=== PATIENT | male | born 1980 | race African-American/Black ===

== ENCOUNTER 2023-08-01 14:54 | Observation (INO) | payer BC ==
[2023-08-01] MEDS ORDERED: Nitroglycerin 0.4 MG TAB (25 Tab Bottle) SL PRN (16:21)
[2023-08-01] MEDS ORDERED: Acetaminophen 325 MG TAB PO PRN (16:21)
[2023-08-01] MEDS ORDERED: Guaifenesin DM 100-10/5 ML UDCUP PO PRN (16:21)
[2023-08-01] MEDS ORDERED: Ondansetron PF 4 MG/2 ML Vial IVP PRN (16:21)
[2023-08-01] MEDS ORDERED: Senokot S 8.6-50 MG TAB PO PRN (16:21)
[2023-08-01 16:51] VITALS: BMI 30.6
[2023-08-01 18:06] LABS: Troponin I Less than 0.010 ng/mL (< 0.028)
[2023-08-01] MEDS: TICAGRELOR 90 MG TABLET PO SCH (20:32)
[2023-08-01] MEDS ORDERED: Atorvastatin Calcium 40 MG TAB PO SCH (21:00)
[2023-08-01 23:06] LABS: Troponin I Less than 0.010 ng/mL (< 0.028)
[2023-08-02 04:02] LABS: #Eosinphils 0.2 thou/uL (0.0-0.7); #Monocytes 0.5 thou/uL (0.11-0.59); #Neutrophils 2.9 thou/uL (1.40-6.50); %Basophils 0.6 % (0.0-1.0); %Eosinophils 3.1 % (0.0-10.0); %Lymphocytes 30.9 % (21.0-51.0); %Monocytes 8.9 % (0.0-10.0); %Neutrophils 56.3 % (42.0-75.0); Hematocrit 42.5 % (42.0-52.0); Mean Corpuscular HGB CONC 30.6 g/dL (32.0-36.0); Mean Corpuscular Hemoglobin 24.7 pg (27.0-31.0); Mean Corpuscular Volume 80.8 fl (78.0-98.0); Platelet Count 183 10x3/uL (130-400); Red Blood Cell (RBC) Count 5.26 mill/uL (4.70-6.10); White Blood Cell (WBC) Count 5.2 10x3/uL (4.8-10.8)
[2023-08-02 04:24] LABS: Anion Gap 13 mmol/L (10-20); BUN (Urea Nitrogen) 10 mg/dL (8.9-20.6); Calc. Creatinine Clearance 132 mL/min (70-130); Calcium 9.3 mg/dL (7.8-10.44); Carbon Dioxide 23 mmol/L (22-29); Cardiac Risk 3.7 (Less than 4.5); Chloride 109 mmol/L (98-107); Cholesterol 159 mg/dl (< 200 Desired); Estimated GFR 101; Glucose 130 mg/dL (70-105); HDL Cholesterol 43 mg/dL (>60 Neg Risk); LDL Cholesterol, Calculated 88 mg/dL; Potassium 3.8 mmol/L (3.5-5.1); Sodium 141 mmol/L (136-145); Triglycerides 138 mg/dL (Less than 150)
[2023-08-02 07:42] VITALS: BP 135/93; TEMP 98.2
[2023-08-02] MEDS ORDERED: Polyethylene Glycol 3350 17 GM Packet PO SCH (09:00)
[2023-08-02] MEDS ORDERED: Ezetimibe 10 MG TAB PO SCH (09:00)
[2023-08-02] MEDS ORDERED: Lisinopril 5 MG TAB PO SCH (09:00)
[2023-08-02] MEDS ORDERED: Empagliflozin 10 MG TAB PO SCH (09:00)
[2023-08-02] MEDS ORDERED: Aspirin Chewable 81 MG TAB PO SCH (09:00)
[2023-08-02] MEDS: TICAGRELOR 90 MG TABLET PO SCH (09:20)
== END 2023-08-02 12:57 | disposition home or self-care (01) ==
LOC: 2NO 16:18 → OBSVTOIN 16:25 → INTOOBSV 16:25
PROVIDERS: ADMIT Hospitalist; ATTEND Hospitalist
DX: R07.9 Chest pain, unspecified (principal); I25.10 Atherosclerotic heart disease of native coronary artery without angina pectoris; E11.9 Type 2 diabetes mellitus without complications; Z95.5 Presence of coronary angioplasty implant and graft; Z91.013 Allergy to seafood; Z79.899 Other long term (current) drug therapy
CPT/HCPCS: 36415; 80048; 80061; 85025; 94760; G0378